=== PATIENT | female | born 1990 | race Caucasian/White ===

== ENCOUNTER 2022-09-13 15:37 | Outpatient (CLI) | payer OTHER, SELFPAY ==
[2022-09-13 16:09] LABS: Basophils Absolute Auto 0.1 K/mm3 (0.0-0.1); Basophils Percent Auto 0.5 % (0.2-1.2); Eosinophils Absolute Auto 0.1 K/mm3 (0-0.3); Eosinophils Percent Auto 0.8 % (0-4.4); Hematocrit 34.8 % (37.0-47.0); Hemoglobin 12.1 g/dL (12.0-15.0); Immature Granulocyte Absolute 0.07 K/mm3 (0.00-0.031); Immature Granulocyte Percent A 0.6 % (0-0.5); Lymphocytes Absolute Auto 1.61 K/mm3 (0.9-3.2); Lymphocytes Percent Auto 14.9 % (18.3-44.2); Mean Corpuscular HGB Conc 34.8 g/dl (32-36); Mean Corpuscular Hemoglobin 32.6 pg (26-34); Mean Corpuscular Volume 93.8 fl (80-100); Monocytes Absolute Auto 0.5 K/mm3 (0.1-0.6); Monocytes Percent Auto 4.8 % (2.6-8.5); Neutrophils Absolute Auto 8.5 K/mm3 (1.3-6.7); Neutrophils Percent Auto 78.4 % (45.5-73.1); Platelet Count Result 185 k/mm3 (150-375); Red Blood Count 3.71 M/mm3 (4.2-5.4); Red Cell Distribution Width 13.3 % (11.5-14.5); White Blood Count 10.8 K/mm3 (4.5-10.0)
[2022-09-13 17:00] LABS: HIV 1/2 Ab P24 Ag Result Negative (Negative)
[2022-09-13 17:23] LABS: Hepatitis B Surface Antigen Negative (Negative); Rubella IgG Antibody 91.4 IU/ML
[2022-09-15 16:54] LABS: Rapid Plasma Reagin Non-Reactive (NonReactive)
[2022-09-18 11:30] LABS: CMV IgG Antibody <0.60 U/mL (<0.60)
== END 2022-09-13 15:38 | disposition home or self-care (01) ==
LOC: ANHLAB 15:38
PROVIDERS: PCP Family Medicine; Visit Provider Obstetrics & Gynecology
DX: N91.2 Amenorrhea, unspecified (principal)
CPT/HCPCS: 36415; 84702; 85025; 86592; 86644; 86703; 86747; 86762; 86787; 86850; 86900; 86901; 87086; 87340; G0432

== ENCOUNTER 2022-12-28 09:33 | Outpatient (CLI) | payer OTHER, SELFPAY ==
[2022-12-28 11:04] LABS: Basophils Absolute Auto 0.1 K/mm3 (0.0-0.1); Basophils Percent Auto 0.5 % (0.2-1.2); Eosinophils Absolute Auto 0.2 K/mm3 (0-0.3); Hematocrit 33.6 % (37.0-47.0); Hemoglobin 11.6 g/dL (12.0-15.0); Immature Granulocyte Absolute 0.23 K/mm3 (0.00-0.031); Immature Granulocyte Percent A 1.6 % (0-0.5); Lymphocytes Absolute Auto 2.02 K/mm3 (0.9-3.2); Lymphocytes Percent Auto 13.8 % (18.3-44.2); Mean Corpuscular HGB Conc 34.5 g/dl (32-36); Mean Corpuscular Hemoglobin 33.5 pg (26-34); Mean Corpuscular Volume 97.1 fl (80-100); Monocytes Absolute Auto 0.8 K/mm3 (0.1-0.6); Monocytes Percent Auto 5.6 % (2.6-8.5); Neutrophils Absolute Auto 11.3 K/mm3 (1.3-6.7); Neutrophils Percent Auto 77.5 % (45.5-73.1); Platelet Count Result 194 k/mm3 (150-375); Red Blood Count 3.46 M/mm3 (4.2-5.4); Red Cell Distribution Width 13.8 % (11.5-14.5); White Blood Count 14.6 K/mm3 (4.5-10.0)
[2022-12-28 11:08] LABS: Glucose 1 Hour PP 50gm Dose 65 mg/dL
[2022-12-28 11:50] LABS: HIV 1/2 Ab P24 Ag Result Negative (Negative)
== END 2022-12-28 09:34 | disposition home or self-care (01) ==
LOC: ANHLAB 09:35
PROVIDERS: PCP Family Medicine; Visit Provider Obstetrics & Gynecology
DX: Z34.90 Encounter for supervision of normal pregnancy, unspecified, unspecified trimester (principal); Z3A.00 Weeks of gestation of pregnancy not specified
CPT/HCPCS: 36415; 82947; 85025; 86703; G0432

== ENCOUNTER 2023-03-28 21:59 | Inpatient (IN) | payer OTHER, SELFPAY ==
--- NOTE | 2023-03-28 21:08 | LDADM ---
This patient, Jenniffer Chavis, was admitted to Labor/Delivery/Recovery 106 on 03/28/23 at 20:50. Plans for labor, pain management and were discussed with patient. Patient/family oriented to hospital policies and general routines including ID bracelet, bed and alarms, visiting hours, pain management, procedures, bathroom and other care routines, personal items, smoking policy, room service/diet and guest tray routines, security routines, and visiting hours. Patient/Family are encouraged to report perceived risks to care and to ask questions if they do not understand what they are told or what they should do. See OBIX for further documentation.
[2023-03-28 21:14] VITALS: BMI 33.2
[2023-03-28 22:21] LABS: Basophils Percent Auto 0.3 % (0.2-1.2); Eosinophils Absolute Auto 0.1 K/mm3 (0-0.3); Eosinophils Percent Auto 0.7 % (0-4.4); Hematocrit 31.5 % (37.0-47.0); Hemoglobin 11.2 g/dL (12.0-15.0); Immature Granulocyte Absolute 0.08 K/mm3 (0.00-0.031); Immature Granulocyte Percent A 0.7 % (0-0.5); Lymphocytes Absolute Auto 2.09 K/mm3 (0.9-3.2); Mean Corpuscular HGB Conc 35.6 g/dl (32-36); Mean Corpuscular Hemoglobin 34.6 pg (26-34); Mean Corpuscular Volume 97.2 fl (80-100); Mean Platelet Volume 11.2 fl (7.4-10.4); Monocytes Absolute Auto 0.9 K/mm3 (0.1-0.6); Monocytes Percent Auto 6.9 % (2.6-8.5); Neutrophils Absolute Auto 9.2 K/mm3 (1.3-6.7); Neutrophils Percent Auto 74.4 % (45.5-73.1); Platelet Count Result 168 k/mm3 (150-375); Red Blood Count 3.24 M/mm3 (4.2-5.4); Red Cell Distribution Width 13.5 % (11.5-14.5); White Blood Count 12.3 K/mm3 (4.5-10.0)
[2023-03-28] MEDS: LACTATED RINGERS 1,000 ML 125 ML IV CONT (23:34)
[2023-03-28] MEDS: OXYTOCIN 30 UNITS/NS 500 ML 30 UNITS/500 ML BAG IV CONT (23:35)
[2023-03-28 23:36] VITALS: RESP 16; TEMP 36.8
[2023-03-29] VITALS (82 sets, daily range): BP systolic 97–156; BP diastolic 57–106; PULSE 57–114; RESP 16–18; TEMP 36.3–37.3; O2SAT 89–100
[2023-03-29] MEDS: LACTATED RINGERS 1,000 ML 999 ML IV CONT ×2 (07:10→07:58)
--- NOTE | 2023-03-29 08:08 | WPDANESEPPF ---
Anes - Initial Pre Proc Eval Date/Time: 03/29/23 08:08 Surgeon: Nestor Acuña MD Pre Op Diagnosis: IOL Patient Data Age: 32 Gender: F Height: 1.75 m Weight: 102 kg Last Vital Signs Temp 36.8 C 03/29/23 08:00 Pulse 84 03/29/23 08:07 Resp 16 03/28/23 23:36 BP 107/61 03/29/23 08:07 Pulse Ox 100 03/29/23 08:06 Allergies Allergy/AdvReac Type Severity Reaction Status Date / Time minocycline Allergy Intermediate Unknown Verified 03/27/23 15:11 nitrofurantoin Allergy Intermediate Hives Verified 03/27/23 15:11 [From Macrobid] Home Medications Medication Instructions Recorded Confirmed Type vits no.126-ferrous fum 1 tablet PO .daily #30 tabs 03/08/23 03/27/23 Rx 28 mg iron-folic acid 800 mcg tablet (Classic ) Laboratory Tests 03/28/23 22:05 WBC 12.3 H K/mm3 (4.5-10.0) RBC 3.24 L M/mm3 (4.2-5.4) Hgb 11.2 L g/dL (12.0-15.0) Hct 31.5 L % (37.0-47.0) MCV 97.2 fl (80-100) MCH 34.6 H pg (26-34) MCHC 35.6 g/dl (32-36) RDW 13.5 % (11.5-14.5) Plt Count 168 k/mm3 (150-375) MPV 11.2 H fl (7.4-10.4) Immature Gran % (Auto) 0.7 H % (0-0.5) Neut % (Auto) 74.4 H % (45.5-73.1) Lymph % (Auto) 17.0 L % (18.3-44.2) Cherry % (Auto) 6.9 % (2.6-8.5) Eos % (Auto) 0.7 % (0-4.4) Baso % (Auto) 0.3 % (0.2-1.2) Lymph # (Auto) 2.09 K/mm3 (0.9-3.2) Cherry # (Auto) 0.9 H K/mm3 (0.1-0.6) Eos # (Auto) 0.1 K/mm3 (0-0.3) Baso # (Auto) 0.0 K/mm3 (0.0-0.1) Abs Immat Gran (auto) 0.08 H K/mm3 (0.00-0.031) Absolute Neuts (auto) 9.2 H K/mm3 (1.3-6.7) Absolute Nucleated RBC 0.0 K/mm3 (0.0-0.012) Nucleated RBC % 0.0 % (0.0-0.2) RPR Pending Blood Type O Positive Antibody Screen Negative Patient hx anesthesia problems: none Family hx anesthesia problems: none Results Review: All pre-operative results and documents have been reviewed as part of the pre-operative evaluation. 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 Surgical History Surgical History History of gynecological procedure (02/24/22) mirena iud removal could not remove History of gynecological procedure (03/20/22) mirena iud removal History of lithotripsy (~06/13/20) Family History Family History Father Hypertension Social History Social History Smoking status: Never smoker Alcohol intake: former Drinks per week: 1 Substance use: never Substance use type: does not use Lack of Transportation: No Lack of Food: Never True Current Housing: I Have Housing Concerned About Future Housing: No Difficulty Paying Gas/Electric Bills: No Difficulty Paying for Meds: No Currently Unemployed: No Education: Bachelor's Degree Difficulty w/ Childcare or Family Care: No Living arrangements: other Additional living arrangements comments: Occupation/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
[2023-03-29 09:15] LABS: Rapid Plasma Reagin Non-Reactive (NonReactive)
--- NOTE | 2023-03-29 10:13 | P.PCNOB_ITS ---
OB - Delivery Note Procedure Induction method: Per Pitocin Protocol Delivery augmentation: Rupture of Membranes Delivery monitor: External FHT and External Uterine Route of delivery: Episiotomy description: None Laceration Description: None Specimen: No Quantitative Blood Loss (ml): 300 Anesthesia type: Epidural Disposition: Floor Complications: Shoulder dystocia. Resolved with Davidson maneuver and suprapubic pressure Narrative: patient prepped draped usual manner for this procedure. Maternal expulsive efforts delivered vertex with dystocia noted. Salo Lozada maneuver and suprapubic pressure from the patient's right to the left dislodged the right shoulder without difficulty and the rest of baby was delivered. Cord was clamped cut baby was passed on the maternal abdomen. Cord clamped cut and kendra centa delivered spontaneously. Uterus was well contracted. Cervix vagina vulva were inspected with no lacerations or tears. At this point the procedure was considered terminated with immediate postoperative condition of mother and baby both excellent. [place] Baby Weeks of gestation at delivery: 40 Infant gender: Male presentation: vertex Placenta delivery description: Spontaneous Cord Vessel Description: 3 Vessels AMG Delivery Billing Delivery Delivery: Delivery Charge
--- NOTE | 2023-03-29 10:13 | WPDHPUPDATE1 ---
History and Physical Update Update Date/Time: 03/29/23 10:13 History and Physical has been reviewed, including an updated exam of the patient. There are NO changes in the patient's condition. Risks, benefits, and alternatives have been discussed and questions answered. Patient agrees to proceed with procedure.
--- NOTE | 2023-03-29 10:13 | WPDOBADMIT ---
Obstetrics - Admit Note Admission Note: record reviewed. No pertinent additions to the history and/or any subsequent changes in the physical findings that are not consistent with the expected course of the were found. Additions to the history and/or subsequent changes in the physical findings follow. None.
[2023-03-29] MEDS: OXYTOCIN 30 UNITS/NS 500 ML 30 UNITS/500 ML BAG 125 UNITS IV CONT (10:29)
[2023-03-29] MEDS: IBUPROFEN 600 MG TABLET PO ×2 (14:43→20:55)
--- NOTE | 2023-03-29 16:03 | PC.NURSE ---
[id number] - Report received that mother is independently her without pain.
[2023-03-30 01:00] VITALS: BP 115/52; PULSE 82; RESP 16; TEMP 36.9; O2SAT 96
[2023-03-30] MEDS: IBUPROFEN 600 MG TABLET PO ×2 (04:53→10:54)
[2023-03-30 05:18] LABS: Hematocrit 29.9 % (37.0-47.0); Hemoglobin 10.1 g/dL (12.0-15.0)
[2023-03-30 08:10] VITALS: BP 127/76; PULSE 67; RESP 18; TEMP 37.1; O2SAT 99
--- NOTE | 2023-03-30 08:26 | WPDANLDPN2 ---
Anes-Prog Note L&D Date/Time: 03/30/23 08:26 Neuro status: Neuro function grossly intact. Vital Signs: Last Vital Signs Temp 36.9 C 03/30/23 01:00 Pulse 82 03/30/23 01:00 Resp 16 03/30/23 01:00 BP 115/52 L 03/30/23 01:00 Pulse Ox 96 03/30/23 01:00 O2 Del Method Room Air 03/29/23 14:00 Pain score (VAS): 0 Patient feedback: Patient satisfied with anesthetic care.
[2023-03-30] MEDS: MULTIVIT/MIN/PREN/FOL AC/IRON TABLET 1 TAB PO (10:54)
--- NOTE | 2023-03-30 12:27 | PM.OBDSVD ---
DS: Admitting Diagnosis Discharge Date 03/30/2023 Admitting Diagnosis DS: Discharge Diagnosis Discharge Diagnosis (1) , delivered: Code(s): O80 - Encounter for full-term uncomplicated delivery Status: Acute OB - DS: Summary OB Procedures : None OB Procedures Intrapartum: Spontaneous Vag Delivery OB Procedures: : None Time Spent with Patient Time attestation: Total time spent providing and/or coordinating discharge services: DS: Data Data Completed and Pending Labs on day of discharge: Labs from last 24 hours 03/30/23 04:50 Hgb 10.1 L Hct 29.9 L Discharge Plan Discharge Discharging Clinician: Nestor Acuña Patient Disposition: Home, Self-Care Activity: as tolerated Diet: as tolerated Patient Instructions: Antibiotic Form Stand Alone Forms: General Discharge Information Follow-up/Referrals: Nestor Acuña MD [Physician] - 3 Weeks Discharge Medications: New ibuprofen 600 mg Tablet 600 mg PO Q6H PRN (Reason: Cramping) Qty: 30 0RF Continued Classic 28 mg iron- 800 mcg tablet 1 tablet PO .daily Qty: 30 3RF Date of admission: 03/28/23 21:59 Primary Care Provider: Andree,Davy Cobb Admitting Provider: Nestor Acuña Attending physician on admission: Nestor Acuña Condition: Stable
--- NOTE | 2023-03-30 15:57 | PC.NURSE ---
[id number] Introductions were made, then consulted with patient to assess needs related to . Mother led the conversation with her?plans to feed?her infant and the?experience so far. Resources provided for inpatient and outpatient services with the feeding sheet, mom/baby guide and name written on the white board. Mother voiced understanding of information and will call if there is a request for assistance. [phone] Call for a consult. mother has experience with but it has been awhile and a 18 month old is different than a . Encouraged mother infant burping, changing positioning, massage touch to stimulate for wakefulness to breastfeed. Mother states her nipples are tender, it is painful to latch her and describes the latch as pinchy . Bilateral nipples have skin intact and there is no visual evidence of injury. Worked with mother learning good positioning, alignment, waiting for the big, wide,open gape from , then bringing infant to the breast to take a mouthful of breast to protect the nipple. Infant breastfed effectively on the left breast, then the right using the football positioning. Mother denied pain and states it feels so much better and infant was able to maintain latch.
[2023-03-31 09:35] VITALS: BP 129/81; PULSE 72; RESP 20; TEMP 36.9; O2SAT 98
== END 2023-03-30 15:00 | disposition home or self-care (01) | DRG 807 ==
LOC: ANHLDR 22:07 → ANHOB2 03-29 13:35
PROVIDERS: Admitting Provider Obstetrics & Gynecology; PCP Family Medicine; Visit Provider Obstetrics & Gynecology
DX: O66.0 Obstructed labor due to shoulder dystocia (principal); Z37.0 Single live birth; Z3A.40 40 weeks gestation of pregnancy
CPT/HCPCS: 36415; 85014; 85018; 85025; 86592; 86850; 86900; 86901; A9270; J2590; J2795; J7120

== ENCOUNTER 2024-04-09 10:45 | Outpatient (CLI) | payer OTHER, SELFPAY ==
[2024-04-09 11:48] LABS: Basophils Percent Auto 0.4 % (0.2-1.2); Eosinophils Absolute Auto 0.1 K/mm3 (0-0.3); Eosinophils Percent Auto 1.5 % (0-4.4); Hematocrit 36.5 % (37.0-47.0); Hemoglobin 12.4 g/dL (12.0-15.0); Immature Granulocyte Absolute 0.05 K/mm3 (0.00-0.031); Immature Granulocyte Percent A 0.6 % (0-0.5); Lymphocytes Absolute Auto 1.41 K/mm3 (0.9-3.2); Lymphocytes Percent Auto 15.9 % (18.3-44.2); Mean Corpuscular Volume 94.1 fl (80-100); Mean Platelet Volume 10.3 fl (7.4-10.4); Monocytes Absolute Auto 0.4 K/mm3 (0.1-0.6); Monocytes Percent Auto 4.3 % (2.6-8.5); Neutrophils Absolute Auto 6.9 K/mm3 (1.3-6.7); Neutrophils Percent Auto 77.3 % (45.5-73.1); Platelet Count Result 215 k/mm3 (150-375); Red Blood Count 3.88 M/mm3 (4.2-5.4); Red Cell Distribution Width 13.2 % (11.5-14.5); White Blood Count 8.9 K/mm3 (4.5-10.0)
[2024-04-09 12:17] LABS: HIV 1/2 Ab P24 Ag Result Negative (Negative)
[2024-04-09 12:18] LABS: Hepatitis B Surface Antigen Negative (Negative)
[2024-04-09 13:23] LABS: Rubella IgG Antibody > 110.0 IU/ML
[2024-04-10 10:49] LABS: Rapid Plasma Reagin Non-Reactive (NonReactive)
[2024-04-10 13:30] LABS: CMV IgG Antibody <0.60 U/mL
== END 2024-04-09 10:46 | disposition home or self-care (01) ==
PROVIDERS: PCP Family Medicine; Visit Provider Obstetrics & Gynecology
DX: N94.89 Other specified conditions associated with female genital organs and menstrual cycle (principal)
CPT/HCPCS: 36415; 84702; 85025; 86592; 86644; 86703; 86747; 86762; 86787; 86850; 86900; 86901; 87086; 87340; G0432

== ENCOUNTER 2024-08-20 10:59 | Outpatient (CLI) | payer OTHER, SELFPAY ==
[2024-08-20 12:33] LABS: Basophils Absolute Auto 0.1 K/mm3 (0.0-0.1); Basophils Percent Auto 0.4 % (0.2-1.2); Eosinophils Absolute Auto 0.2 K/mm3 (0-0.3); Eosinophils Percent Auto 1.1 % (0-4.4); Hematocrit 28.7 % (37.0-47.0); Hemoglobin 9.6 g/dL (12.0-15.0); Immature Granulocyte Absolute 0.17 K/mm3 (0.00-0.031); Immature Granulocyte Percent A 1.3 % (0-0.5); Lymphocytes Absolute Auto 1.65 K/mm3 (0.9-3.2); Lymphocytes Percent Auto 12.5 % (18.3-44.2); Mean Corpuscular HGB Conc 33.4 g/dl (32-36); Mean Corpuscular Hemoglobin 32.4 pg (26-34); Mean Platelet Volume 10.5 fl (7.4-10.4); Monocytes Absolute Auto 0.7 K/mm3 (0.1-0.6); Monocytes Percent Auto 5.1 % (2.6-8.5); Neutrophils Absolute Auto 10.5 K/mm3 (1.3-6.7); Neutrophils Percent Auto 79.6 % (45.5-73.1); Platelet Count Result 207 k/mm3 (150-375); Red Blood Count 2.96 M/mm3 (4.2-5.4); Red Cell Distribution Width 14.2 % (11.5-14.5); White Blood Count 13.2 K/mm3 (4.5-10.0)
[2024-08-20 13:05] LABS: Glucose 1 Hour PP 50gm Dose 104 mg/dL
[2024-08-20 13:26] LABS: Rapid Plasma Reagin Non-Reactive (NonReactive)
[2024-08-20 13:42] LABS: HIV 1/2 Ab P24 Ag Result Negative (Negative)
== END 2024-08-20 11:00 | disposition home or self-care (01) ==
LOC: ANHLAB 11:01
PROVIDERS: PCP Family Medicine; Visit Provider Obstetrics & Gynecology
DX: Z34.90 Encounter for supervision of normal pregnancy, unspecified, unspecified trimester (principal)
CPT/HCPCS: 36415; 82947; 85025; 86592; 86703; G0432

== ENCOUNTER 2024-11-07 06:12 | Inpatient (IN) | payer OTHER, SELFPAY ==
[2024-11-07] VITALS (59 sets, daily range): BP systolic 83–144; BP diastolic 48–107; PULSE 59–163; RESP 16–18; TEMP 36.4–37.3; O2SAT 82–100; BMI 33.8
--- OUTSIDE RECORDS SUMMARY | 2024-11-07 06:20 | XMS_ITS | Clinical Summary ---
Author Organization [facility] Address [address] [place] [address] Care Team Providers Care Corporate Risk Analyst Name Role Phone Davy Candelario MD Primary Care Provider [phone] Rafael Gamino MD Unavailable [phone] Allergies Active Allergy Reactions Criticality Noted Date Comments Minocycline Anaphylaxis High 06/28/2020 Anaphylaxis Nitrofurantoin Rash,Urticaria Medium 08/19/2019 Hives Nitrofurantoin Monohyd/M-Cryst Hives Medium 07/14 Medications No known medications Active Problems Problem Noted Date Diagnosed Date Polyarthralgia 09/29/2021 Overview (10/20/2021): 10/2021 labs: Negative 14.33, negative chromatin ab, AVISE RAMIRO 1:320 (nuclear homogenous), anti-histone neg 10/2021 bilateral knee XR: moderate osteoarthritis of the medial compartment Assessment & Plan (10/20/2021 5:29 PM SAS ANALYST): Recent serologies were positive for an isolated RAMIRO at 1:320. Radiographic imaging of the bilateral knees showed moderate OA of the medial compartments. Based on her symptoms and unusual moderate OA findings on XRs she may have an inflammatory arthritis. As symptoms are not severe or persistent and well controlled with ibuprofen during a flare we discussed monitoring at this time. She is aware a prescription strength NSAID could be sent in to her pharmacy if she would like one. Recommend return visit in 4 months, or sooner if she begins to experience a flare up so we can visualize the joints (potentially aspirate the knee and send off for analysis). Patient agreed with plan. Seen with Dr. Gamino. Assessment & Plan (09/30/2021 1:03 PM SAS ANALYST): Ms. Chavis is a 30yo female with PMH of anxiety, migraines, hx of drug induced lupus and hx of nephrolithiasis who presents for additional evaluation of her intermittent joint complaints and recent +RAMIRO. At 15 she was on minocycline for acne and developed drug induced lupus with RAMIRO 1:2560 and arthralgias/fatigue that resolved with daily prednisone x months. At this time she is experiencing knee/ankle pain that occurs intermitently in flares which last for a few days. During the flares these joints will feel stiff with swelling in the knees. Symptoms will be worse in the AM and improve with activity. Takes 800mg ibuprofen BID prn during flares with improvement. Additional symptoms include dry eyes. Denies any injury/trauma to knees and did not play many sports in school. Questionable FH of RA in her maternal grandmother. Moderate amount of crepitus of knees, L>R, without tenderness or effusions. Questionable fullness of the left 2-3rd MCP joints. No joint tenderness on exam. Based on the episodic nature of her symptoms with knee effusions and crepitus on exam there is concern for an inflammatory arthritis. Will perform appropriate radiographs and serologies (including histones due to hx of drug induced lupus) to assess the etiology of symptoms. Encouraged her to return sooner if she develops a flare up before her next visit - may try to aspirate knee joint for fluid analysis. Return in [address] Gamino. Nephrolithiasis 07/01/2020 Overview (07/01/2020): Added automatically from request for surgery [id number] Immunizations Immunization Administration Dates Next Due Influenza, Unspecified 07/14/2021(Deferr ed: Patient Refused),08/13/2020(Deferred: Patient Refused) Td, adsorbed 02/15/2017 Surgical History Surgery Date Site/Laterality Comments CYSTOSCOPY 08/13/2019 - 08/12/2020 x2 Medical History Medical History Date Comments Nephrolithiasis Family History Medical History Relation Name Comments Coronary artery disease Maternal Grandfather Relation Name Status Comments Maternal Grandfather Social History Tobacco Use Types Packs/Day Years Used Date Smoking Tobacco: Never Smokeless Tobacco: Never AUDIT-C Answer Date Recorded Q1: How often do you have a drink containing alc ohol? 2-4 times a month 04/04/2022 Q2: How many drinks containi ng alcohol do you have on a typical day when you are drinking? 1 or 2 04/04/2022 Q3: How often do you have si x or more drinks on one occasion? Never 04/04/2022 PHQ-2 Answer Date Recorded PHQ-2 Total Score (If total score is 3 or more points, staff should administer the PHQ-9) 0 07/14/2021 Personal Safety Answer Date Recorded Getting School Help Needed Not on file 10/13 Comments Unknown Sex and Gender Information Value Date Recorded Sex Assigned at Not on file Legal Sex Female 7:37 PM SAS ANALYST Gender Identity Not on file Sexual Orientation Not on file Obstetrics History Last Filed Vital Signs Vital Sign Reading Time Taken Comments Blood Pressure 110/70 04/04/2022 9:47 AM CDT Pulse 90 04/04/2022 9:47 AM CDT Temperature 36.6 C (97.8 F) 04/04/2022 9:47 AM CDT Respiratory Rate 18 04/04/2022 9:47 AM CDT Oxygen Saturation 97% 04/04/2022 9:47 AM CDT Inhaled Oxygen Concentration - - Weight 80.3 kg (177 lb) 04/04/2022 9:47 AM CDT Height 175.3 cm (5' 9 ) 04/04/2022 9:47 AM CDT Body Mass Index 26.14 04/04/2022 9:47 AM CDT Plan of Treatment Health Maintenance Due Date Last Done Comments Cervical Cancer Screening 1989 Hepatitis C Screening 1989 Varicella Vaccines (1 of 2 - 13+ 2-dose series) 2002 Hepatitis B Screening 12/09/2007 Regular Well Visit/Exam 18-64 12/09/2007 DTaP/Tdap/Td Vaccine (1 - Tdap) 02/16/2017 7 Depression Screening 07/14/2022 07/14/2021 Influenza Vaccine (#1) 2024 HPV Vaccines Aged Out No longer eligi ble based on patient's age to complete this topic Pneumococcal vaccine <65 Aged Out No longer eligible based on patient's age to complete this topic Insurance [employer] [facility] CHOICE OOS BL CHOICE PRF PPO [place] Care Teams Corporate Risk Analyst Relationship Specialty Start Date End Date Davy Candelario MD [address] [facility] [address] [address] PCP - General Family Medicine 07/29/20 Rafael Gamino MD [address] [place] [address] Consulting Physician Rheumatology 08/03/21
--- OUTSIDE RECORDS SUMMARY | 2024-11-07 06:20 | XMS_ITS | Encounter Summary ---
Author Organization [facility] Address [address] [place] [address] Care Team Providers Care Marketing Rep Name Role Phone Davy Candelario MD Primary Care Provider [phone] Rafael Gamino MD Unavailable [phone] Encounter Details Date Type Department Care Team (Late st Contact Info) Description 04/09/2024 Orders Only [facility] [address] [place] [address] Davy Candelario MD [address] [facility] [address] [address] Social History Tobacco Use Types Packs/Day Years [...] on file Legal Sex Female 7:37 PM SUPERVISOR GROUNDS Gender Identity Not on file Sexual Orientation Not on file documented as of this encounter Plan of Treatment Not on file documented as of this encounter Procedures Procedure Name Priority Date/Time Associated Diagnosis Comments SCAN - LABS 04/09/2024 documented in this encounter Results * SCAN - LABS (04/09/2024) us Davy Candelario MD Final Result documented in this encounter Visit Diagnoses Not on filedocumented in this encounter Care Teams Marketing Rep Relationship Specialty Start Date End Date Davy Candelario MD [address] [facility] [address] [address] PCP - General Family Medicine 07/29/20 Rafael Gamino MD [address] [place] [address] Consulting Physician Rheumatology 08/03/21 documented as of this encounter
--- OUTSIDE RECORDS SUMMARY | 2024-11-07 06:20 | XMS_ITS | Clinical Summary ---
Author Organization [facility] Address [address] [place] [address] Care Team Providers Care Reporting Developer Name Role Phone Unavailable Primary Care Provider Unavailabl e Source Comments [facility],non-owned Affiliates and Associated Physician Practices is amultiple site organization consisting of ambulatory clinics and hospital sitesin [place], [place], [place] and [place]. This disclosure is being madepursuant to the Care Everywhere program and may not contain all information available regarding this patient. Last updated 18.[facility] Allergies Active Allergy Reactions Criticality Noted Date Comments Nitrofurantoin Urticaria Medium 08/19/2019 Medications * Be aware that medications may not be up to date on this document. Alwaysverify current medications with the patient. Medication Sig Dispensed Refills Start Date End Date Status oxyCODONE, immediate release, (ROXICODONE) 5 MG tablet Take 1 tablet by mouth every 6 hours as needed for Pain 5 tablet 08/20/2019 Active Active Problems Problem Noted Date Diagnosed Date Supervision of other high risk , antepa rtum 08/20/2019 Excessive growth affec ting management of mother in third trimester, antepartum Resolved Problems Problem Noted Date Diagnosed Date Resolved Date complicated by nep hrolithiasis, antepartum, third trimester 08/20/2019 Social History Tobacco Use Types Packs/Day Years Used Date Smoking Tobacco: Never Assessed Sex and Gender Information Value Date Recorded Sex Assigned at Not on file Gender Identity Not on file Sexual Orientation Not on file Last Filed Vital Signs Vital Sign Reading Time Taken Comments Blood Pressure 107/68 08/20/2019 7:58 AM MEDICAL CODER Pulse 80 08/20/2019 7:58 AM MEDICAL CODER Temperature 36.8 C (98.3 F) 08/20/2019 7:58 AM MEDICAL CODER Respiratory Rate 18 08/20/2019 7:58 AM MEDICAL CODER Oxygen Saturation 98% 08/20/2019 7:58 AM MEDICAL CODER Inhaled Oxygen Concentration - - Weight 98.9 kg (218 lb) 08/19/2019 11:15 PM MEDICAL CODER Height 175.3 cm (5' 9 ) 08/19/2019 11:15 PM MEDICAL CODER Body Mass Index 32.19 08/19/2019 11:15 PM MEDICAL CODER Plan of Treatment Health Maintenance Due Date Last Done Comments PAP SMEAR 1989 HIV SCREENING 2004 HEPATITIS C SCREENING 12/04/2007 DTAP/TDAP/TD VACCINES (1 - Tdap) 2008 HEPATITIS B VACCINE (1 of 3 - 19+ 3-dose series) 2008 COVID-19 VACCINE (1 - 2023-2 5 season) 2024 INFLUENZA VACCINE (#1) 2024 DEPRESSION SCREENING 08/13/2024 ZOSTER VACCINE (1 of 2) 12/09/2039 HIB VACCINE Aged Out No longer eligi ble based on patient's age to complete this topic HPV VACCINE Aged Out No longer eligi ble based on patient's age to complete this topic MENINGOCOCCAL (Group B) VACC INE SHARED DECISION-MAKING Aged Out No longer eligibl e based on patient's age to complete this topic MENINGOCOCCAL GROUPS A/C/Y/W VACCINE Aged Out No longer eligible b ased on patient's age to complete this topic PNEUMOCOCCAL VACCINE Aged Out No long er eligible based on patient's age to complete this topic Advance Directives * Full Code (Latest Code Status on File) Date Activated Date Inactivated Comments 08/20/2019 1:58 AM 08/20/2019 3:38 PM
--- OUTSIDE RECORDS SUMMARY | 2024-11-07 06:20 | XMS_ITS | Referral Summary ---
Author Organization [facility] Address [address] [place] [address] Care Team Providers Care Pig Furnace Operator Name Role Phone Davy Candelario MD Primary Care Provider [phone] Rafael Gamino MD Unavailable [phone] Allergies Active Allergy Reactions Criticality Noted Date [...] compartment Assessment & Plan (10/20/2021 5:29 PM GOLF COURSE STARTER): Recent serologies were positive for an isolated [...] Gamino. Assessment & Plan (09/30/2021 1:03 PM GOLF COURSE STARTER): Ms. Chavis is a 30yo female with [...] (07/01/2020): Added automatically from request for surgery [id number] Immunizations Immunization Administration Dates Next Due Influenza, Unspecified 07/14/2021(Deferr ed: Patient Refused),08/13/2020(Deferred: Patient Refused) Td, adsorbed 02/15/2017 Social History Tobacco Use Types Packs/Day Years [...] on file Legal Sex Female 7:37 PM GOLF COURSE STARTER Gender Identity Not on file Sexual Orientation [...] 04/04/2022 9:47 AM CDT Plan of Treatment Not on file Insurance [employer] OOS [facility] CHOICE OOS CHOICE [place]F PPO [place] Care Teams Pig Furnace Operator Relationship Specialty Start Date End Date Davy Candelario MD [address] [facility] [place] [address] PCP - General Family Medicine 07/29/20 Rafael Gamino MD [address] [place] [address] Consulting Physician Rheumatology 08/03/21
[2024-11-07] MEDS: LACTATED RINGERS 1,000 ML 125 ML IV CONT (06:30)
[2024-11-07 06:49] LABS: Basophils Percent Auto 0.3 % (0.2-1.2); Eosinophils Absolute Auto 0.1 K/mm3 (0-0.3); Hematocrit 37.1 % (37.0-47.0); Hemoglobin 12.9 g/dL (12.0-15.0); Immature Granulocyte Absolute 0.09 K/mm3 (0.00-0.031); Immature Granulocyte Percent A 0.7 % (0-0.5); Lymphocytes Absolute Auto 2.82 K/mm3 (0.9-3.2); Lymphocytes Percent Auto 21.9 % (18.3-44.2); Mean Corpuscular HGB Conc 34.8 g/dl (32-36); Mean Corpuscular Hemoglobin 32.8 pg (26-34); Mean Corpuscular Volume 94.4 fl (80-100); Mean Platelet Volume 10.9 fl (7.4-10.4); Monocytes Absolute Auto 0.7 K/mm3 (0.1-0.6); Monocytes Percent Auto 5.7 % (2.6-8.5); Neutrophils Absolute Auto 9.1 K/mm3 (1.3-6.7); Neutrophils Percent Auto 70.4 % (45.5-73.1); Platelet Count Result 171 k/mm3 (150-375); Red Blood Count 3.93 M/mm3 (4.2-5.4); Red Cell Distribution Width 15.2 % (11.5-14.5); White Blood Count 12.9 K/mm3 (4.5-10.0)
--- NOTE | 2024-11-07 06:52 | P.PNAN_ITS ---
Anes - Eval Pre Procedure Procedure: Labor epidural Date/Time: 11/07/24 06:52 Surgeon: elias Preop Diagnosis: pain during labor Pre Op Diagnosis: IOL Patient Data Age: 33 Gender: F Height: Weight: Last Vital Signs Pulse 87 11/07/24 06:50 BP 106/76 11/07/24 06:50 Pulse Ox 100 11/07/24 06:51 Allergies Allergy/AdvReac Type Severity Reaction Status Date / Time minocycline Allergy Intermediate Unknown Verified 11/03/24 13:53 nitrofurantoin (From Allergy Intermediate Hives Verified 11/03/24 13:53 Macrobid) Home Medications ?Medication ?Instructions ?Recorded ?Confirmed ?Type vits no.126-ferrous fum 1 tablet PO .daily #30 tabs 03/08/23 11/03/24 Rx 28 mg iron-folic acid 800 mcg tablet (Classic ) ferrous sulfate 325 mg (65 mg 325 mg PO DAILY 08/25/24 11/03/24 History iron) tablet Laboratory Tests 11/07/24 06:39 WBC Pending RBC Pending Hgb Pending Hct Pending MCV Pending MCH Pending MCHC Pending RDW Pending Plt Count Pending MPV Pending Immature Gran % (Auto) Pending Neut % (Auto) Pending Lymph % (Auto) Pending Wallace % (Auto) Pending Eos % (Auto) Pending Baso % (Auto) Pending Lymph # (Auto) Pending Wallace # (Auto) Pending Eos # (Auto) Pending Baso # (Auto) Pending Abs Immat Gran (auto) Pending Absolute Neuts (auto) Pending Absolute Nucleated RBC Pending Nucleated RBC % Pending HIV 1&2 Ab/P24 Ag 4thGn Pending Patient hx anesthesia problems: none Family hx anesthesia problems: none Results Review: All pre-operative results and documents have been reviewed as part of the pre- operative evaluation. 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 Kidney stones PCR DNA positive for HSV1 Anxiety Surgical History Surgical History History of gynecological procedure (03/20/22) mirena iud removal History of gynecological procedure (02/24/22) mirena iud removal could not remove History of lithotripsy (~06/13/20) Family History Family History Father Hypertension Social History Social History Smoking status: Never smoker Second hand tobacco smoke exposure: No Alcohol intake: former Alcohol use details: 1 a month Substance use: never Substance use type: does not use Do You Feel Safe in your Home?: Yes Lack of Transportation: No Lack of Food: Never True Current Housing: Decline to Answer Concerned About Future Housing: Decline to Answer Difficulty Paying Gas/Electric Bills: Decline to Answer Difficulty Paying for Meds: Decline to Answer Currently Unemployed: Decline to Answer Education: Decline to Answer Difficulty w/ Childcare or Family Care: Decline to Answer Living arrangements: with family Additional living arrangements comments: Occupation/Education: occupation Additional occupation/education comments: RN Gender identity (if verbalized by the patient): Female Sexual Orientation (if Verbalized by the Patient): Straight or Heterosexual Spiritual care concerns: No Exam Day of Procedure 11/07/24 06:52
--- NOTE | 2024-11-07 07:08 | LDADM ---
This patient, Jenniffer Chavis, was admitted to Labor/Delivery/Recovery 106 on 11/07/24 at 06:12. Plans for labor, pain management and were discussed with patient. Patient/family oriented to hospital policies and general routines including ID bracelet, bed and alarms, visiting hours, pain management, procedures, bathroom and other care routines, personal items, smoking policy, room service/diet and guest tray routines, security routines, and visiting hours. Patient/Family are encouraged to report perceived risks to care and to ask questions if they do not understand what they are told or what they should do. See OBIX for further documentation.
--- NOTE | 2024-11-07 07:09 | WPDHPUPDATE1 ---
History and Physical Update Update Date/Time: 11/07/24 07:09 History and Physical has been reviewed, including an updated exam of the patient. There are NO changes in the patient's condition. Risks, benefits, and alternatives have been discussed and questions answered. Patient agrees to proceed with procedure.
[2024-11-07 07:23] LABS: Syphilis IgG/IgM Antibody Negative (Negative)
[2024-11-07] MEDS: OXYTOCIN 30 UNITS/NS 500 ML 30 UNITS/500 ML BAG 999 UNITS IV CONT (07:35)
[2024-11-07 07:36] LABS: HIV 1/2 Ab P24 Ag Result Negative (Negative)
--- NOTE | 2024-11-07 07:47 | PM.OBPRVD ---
OB - Vaginal Delivery Note Procedure Delivery date: 11/07/24 Intrapartal Events: Other (Shoulder dystocia) Induction method: None Delivery monitor: External FHT and External Uterine Route of delivery: Episiotomy description: None Laceration Description: None Specimen: Yes Quantitative Blood Loss (ml): 300 Anesthesia type: Epidural Disposition: Floor Complications: No immediate complications Narrative: Patient prepped and draped usual manner for this procedure. Maternal expulsive efforts delivered vertex. At this point shoulder dystocia was noted, Davidson maneuver was employed and suprapubic pressure. With these maneuvers shoulder was still impacted, attempt to deliver posterior shoulder was unsuccessful. With the next contraction with further suprapubic pressure deflecting shoulder to the patient's left baby delivered, cord clamped and cut and baby was passed off to the pediatric team in attendance. Placenta delivered spontaneously and the uterus was well contracted. Cervix vagina vulva were inspected with no lacerations or tears. Medial postoperative condition of mother was excellent, baby doing well other than left arm being floppy. Baby Gestational Age by Date: 40 gender: Male Weight (pounds): 11 Weight (ounces): 4 presentation: vertex position: Left Occiput Anterior Placenta delivery description: Spontaneous Cord Vessel Description: 3 Vessels score one minute: 7 score five minutes: 9
[2024-11-07] MEDS: OXYTOCIN 30 UNITS/NS 500 ML 30 UNITS/500 ML BAG 125 UNITS IV CONT (08:20)
[2024-11-07] MEDS: IBUPROFEN 600 MG TABLET PO ×2 (11:05→19:28)
[2024-11-07] MEDS: BENZOCAINE 20% AER SPR (*SP) 56 GM CAN 1 SPRAY TOPICAL (11:05)
[2024-11-07] MEDS: WITCH HAZEL 40 PADS 1 PAD TOPICAL (11:05)
--- NOTE | 2024-11-07 11:11 | OBPPTRN ---
Patient transferred to post room # via wheelchair. Support person present. Oriented to unit, room, information board, rooming in, admission packet and security measures. Patient verbalizes understanding.
--- NOTE | 2024-11-07 15:50 | PC.NURSE ---
Mother verbalizes she is able to independently latch with appropriate positioning and alignment. She denies any nipple discomfort and is responsively . Infant is currently meeting outcomes blood sugar and feeding frequencies of 8-12 times in 24 hours. Mother declines any additional assistance or education at this time. Mother is encouraged to call for assistance if her infant doesn?t latch, pain with latching, questions or concerns. Mother voiced understanding of information shared along with the mom/baby guide and phone number for an additional resource. Reported to the Primary RN.
[2024-11-08] MEDS: IBUPROFEN 600 MG TABLET PO (00:48)
[2024-11-08 03:45] VITALS: BP 98/62; PULSE 71; RESP 16; TEMP 36.4; O2SAT 98
[2024-11-08 05:44] LABS: Hematocrit 29.8 % (37.0-47.0); Hemoglobin 10.1 g/dL (12.0-15.0)
[2024-11-08 06:00] LABS: Hemoglobin A1C 4.7 % (<5.7)
--- NOTE | 2024-11-08 07:39 | P.DS_ITS ---
DS: Admitting Diagnosis Discharge Date 11/08/24 Admitting Diagnosis intrauterine at term DS: Discharge Diagnosis Discharge Diagnosis (1) Normal vaginal delivery: Code(s): O80 - Encounter for full-term uncomplicated delivery Status: Acute (2) Shoulder dystocia during labor and delivery: Code(s): O66.0 - Obstructed labor due to shoulder dystocia Status: Acute OB - DS: Summary OB Procedures : None OB Procedures Intrapartum: Spontaneous Vag Delivery OB Procedures: : None Peripartum Data Laceration Description: None Episiotomy description: None Status at Discharge Functional status at discharge: independent ambulation Overall status at discharge: patient is back to baseline Time Spent with Patient Time attestation: Total time spent providing and/or coordinating discharge services: Time spent: Less than 30 minutes Exam Const: General: comfortable and no acute distress Resp: Effort & Inspection: normal respiratory effort Auscultation: clear to auscultation bilaterally Cardio: Rate: regular rate GI: GI Palp: Yes Soft to palpation Auscultation: normal bowel sounds Other: Fundus firm below umbilicus Psych: Appearance: grossly normal Mental Status: mental status grossly normal Affect: normal affect DS: Data Data Completed and Pending Pending studies at discharge: Pending at discharge 11/07/24 11:37 Surgical [PTH] Routine Labs on day of discharge: Labs from last 24 hours 11/08/24 11/07/24 05:06 06:39 Hgb 10.1 L Hct 29.8 L Hemoglobin A1c 4.7 Blood Type O Positive Antibody Screen Negative Discharge Plan Discharge Discharging Clinician: Samm Perez Activity: as tolerated and pelvic rest Diet: regular Patient Instructions: Vaginal Delivery (DC) Patient Language: Croatian Follow-up/Referrals: Nestor Acuña MD [Physician] - 4 Weeks Discharge Medications: New acetaminophen 500 mg tablet 500 mg PO Q6H PRN (Reason: pain) Qty: 30 0RF ibuprofen 600 mg tablet 600 mg PO Q6H PRN (Reason: pain) Qty: 30 0RF Continued ferrous sulfate 325 mg (65 mg iron) tablet 325 mg PO DAILY Classic 28 mg iron- 800 mcg tablet 1 tablet PO .daily Qty: 30 3RF Date of admission: 11/07/24 06:12 Primary Care Provider: PHYSICIAN,ENERGY PROJECT ENGINEER Admitting Provider: Nestor Acuña Attending physician on admission: Nestor Acuña Condition: Stable
[2024-11-08 08:00] VITALS: PULSE 68; RESP 18; O2SAT 98
[2024-11-08 08:15] VITALS: BP 115/76; PULSE 68; RESP 18; TEMP 36.4; O2SAT 98
[2024-11-08] MEDS: MULTIVIT/MIN/PREN/FOL AC/IRON TABLET 1 TAB PO (09:57)
--- NOTE | 2024-11-08 11:44 | PC.NURSE ---
Mother verbalizes she is able to independently latch with appropriate positioning and alignment. She denies any nipple discomfort and is responsively . Mother is feeding appropriately for growth of and understands stimulating infant to eat if needed. Infant has had appropriate feedings in the last 24 hours meets the outcomes for weight, output, blood sugar and jaundice at this time. Reinforced understanding of milk production, transition of milk, signs of adequate intake, transition of stool, prevention/relief of engorgement, plugged ducts, mastitis, responsive watching for feeding cues, the different methods of stimulating to breastfeed 1-3 hours after the start of the last feeding, community resources, and when to call a provider using the resource of the feeding sheet along with the mom and baby guide. Mother voiced understanding of the information shared, is confident to continue effectively her at home, when to call for assistance, denies any additional assistance or education at this time. Reported to the Primary RN.
--- NOTE | 2024-11-08 12:35 | PC.NURSE ---
Patient was given the opportunity to view the discharge video Mother & Baby Care, The First Two Weeks and to ask questions. Patient declined viewing the video and has been given the mother/baby guide for home reference.
[2024-11-10 09:27] VITALS: BP 114/69; PULSE 77; RESP 18; TEMP 36.9; O2SAT 100
== END 2024-11-08 14:01 | disposition home or self-care (01) | DRG 807 ==
LOC: ANHLDR 06:34 → ANHOB2 11:59
PROVIDERS: Admitting Provider Obstetrics & Gynecology; Visit Provider Student in an Organized Health Care Education/Training Program
DX: O66.0 Obstructed labor due to shoulder dystocia (principal); Z37.0 Single live birth; Z3A.40 40 weeks gestation of pregnancy
CPT/HCPCS: 36415; 83036; 85014; 85018; 85025; 86593; 86703; 86850; 86900; 86901; 88307; A9270; G0432; J2590; J7120